=== PATIENT | male | born 2000 | race Caucasian/White ===

== ENCOUNTER 2020-10-05 20:14 | Emergency (ER) | payer BC ==
[~2020-10-05] VITALS: Ht 182.9 cm; Wt 74.8 kg
[~2020-10-05 20:14] MED LIST: ADVIL; AMOCLA875 PO; AMOX50SU PO; AZIT200SU; Bactrim Ds Tab1 EACH PO; Bactroban22 GM TOP; CEPH500 PO; HIBICLENS120 ML EXT; HYDACE5325 PO; Monodox100 MG PO; Mupirocin22 GM TOP; Prednisone20 MG PO; RXCODACET PO; TRIAMENIC; TYLENOL; Ventolin Soln3 ML INH; Ventolin/Prove6.7 GM INH
[2020-10-05] MEDS ORDERED: AMOCLA875 PO (23:25)
== END 2020-10-05 23:24 | disposition home or self-care (01) ==
LOC: ER 20:14
DX: K04.7 Periapical abscess without sinus (principal)
CPT/HCPCS: 99282

== ENCOUNTER 2021-05-28 14:05 | Emergency (ER) | payer BC | END 2021-05-28 14:35 | disposition left against medical advice (07) | LOC: ER 14:05 | DX: Z53.21 Procedure and treatment not carried out due to patient leaving prior to being seen by health care provider (principal) ==

== ENCOUNTER 2025-07-07 17:22 | Emergency (ER) | payer OTHER ==
[~2025-07-07] VITALS: Ht 182.9 cm; Wt 79.4 kg
[~2025-07-07 17:22] MED LIST changes: +ALBU90OI INH; +BENZ100A PO
[2025-07-07 18:35] LABS: BASOPHILS ABSOLUTE AUTO 0.03 K/mm3 (0.00-0.23); BASOPHILS PERCENT AUTO 0 % (0-2); EOSINOPHILS ABSOLUTE AUTO 0.13 K/mm3 (0.00-0.68); EOSINOPHILS PERCENT AUTO 2 % (0-6); Hematocrit 41.9 % (37.0-53.0); Hemoglobin 14.7 g/dL (13.5-17.5); IMMATURE GRAN ABSOLUTE AUTO 0.03 K/mm3 (0.00-0.10); IMMATURE GRAN PERCENT AUTO 0 % (0-1); LYMPHOCYTES ABSOLUTE AUTO 2.03 K/mm3 (0.84-5.20); LYMPHOCYTES PERCENT AUTO 26 % (21-46); MONOCYTES ABSOLUTE AUTO 0.84 K/mm3 (0.16-1.47); MONOCYTES PERCENT AUTO 11 % (4-13); Mean Corpuscular HGB Conc 35.1 g/dL (31.5-36.5); Mean Corpuscular Volume 92 fL (80-100); NEUTROPHILS ABSOLUTE AUTO 4.87 K/mm3 (1.96-9.15); NEUTROPHILS PERCENT AUTO 61 % (41-73); NRBC ABSOLUTE 0.00 K/mm3 (0.00-0.02); NRBC Auto 0.0 /100 WBC (0.0-0.2); Platelet Count 217 K/mm3 (150-400); RDW Coefficient Variation 11.8 % (11.7-14.2); RDW Standard Deviation 40.0 fL (35.1-46.3)
[2025-07-07 19:20] LABS: Alanine Aminotransfer (ALT/SGP 23.0 U/L (12-78); Albumin, Blood 4.4 g/dL (3.4-5.0); Albumin/Globulin Ratio 1.5 (0.8-1.8); Anion Gap 9.0 mmol/L (3-11); Aspartate Aminotrans (AST/SGOT 21.0 U/L (12-37); Bilirubin, Total 0.3 mg/dL (0.1-1.0); Blood Urea Nitrogen 15.0 mg/dL (8-24); CO2, Blood 26.0 mmol/L (21-32); Calcium, Blood 8.9 mg/dL (8.5-10.1); Chloride, Blood 102.0 mmol/L (98-108); Creatinine, Blood 1.08 mg/dL (0.60-1.20); Globulin, Blood 2.9 g/dL (2.2-4.0); Glucose, Blood 108.0 mg/dL (70-99); Potassium, Blood 3.8 mmol/L (3.5-5.5); Sodium, Blood 133.0 mmol/L (136-145); Total Protein, Blood 7.3 g/dL (6.4-8.2)
[2025-07-07 20:00] VITALS: BP 137/97
== END 2025-07-07 21:18 | disposition home or self-care (01) ==
LOC: ER 17:22
PROVIDERS: Emergency Medicine
DX: R07.9 Chest pain, unspecified (principal); E86.0 Dehydration; E87.1 Hypo-osmolality and hyponatremia; F17.220 Nicotine dependence, chewing tobacco, uncomplicated; Z59.89 Other problems related to housing and economic circumstances
CPT/HCPCS: 71046; 80053; 85025; 93005; 93010; 99285-25

== ENCOUNTER 2025-07-14 11:48 | Emergency (ER) | payer OTHER ==
[~2025-07-14] VITALS: Ht 182.9 cm; Wt 79.4 kg
[2025-07-14 12:08] VITALS: BP 131/77
[2025-07-14] MEDS ORDERED: CEPH500 PO (13:02)
== END 2025-07-14 13:18 | disposition home or self-care (01) ==
LOC: ER 11:48
DX: S41.112A Laceration without foreign body of left upper arm, initial encounter (principal); W09.1XXA Fall from playground swing, initial encounter; W29.3XXA Contact with powered garden and outdoor hand tools and machinery, initial encounter; Z79.2 Long term (current) use of antibiotics; Z87.891 Personal history of nicotine dependence; Z59.89 Other problems related to housing and economic circumstances
CPT/HCPCS: 12034; 99282-25